=== PATIENT | female | born 1985 | race African-American/Black ===

== ENCOUNTER 2023-10-29 10:34 | Emergency (ER) | payer MEDICAID, OTHER ==
[~2023-10-29] VITALS: Ht 162.6 cm; Wt 55.0 kg
[~2023-10-29 10:34] MED LIST: INSULIN
[2023-10-29 10:44] VITALS: O2SAT 100
[2023-10-29 11:00] LABS: BASOPHILS % 0.3 % (0.0-2.0); EOSINOPHILS % 0.2 % (0.0-5.0); HEMOGLOBIN. 13.8 g/dL (12.0-16.0); LYMPHOCYTES % 18.2 % (20.0-50.0); MEAN CORPUSCULAR HEMOGLOBIN 30.2 pg (28.0-32.0); MEAN CORPUSCULAR HGB CONC 33.7 g/dL (31.0-37.0); MEAN CORPUSCULAR VOLUME 89.6 fL (81.0-99.0); MEAN PLATELET VOLUME 9.1 fl (7.4-10.4); MONOCYTES % 7.4 % (2.0-8.0); NEUTROPHILS % 73.9 % (40.0-76.0); PLATELET 258 x1000/uL (130-400); RED BLOOD CELL COUNT 4.58 mill/uL (4.2-5.4); RED CELL DISTRIBUTION WIDTH 13.4 % (11.6-14.6); WHITE BLOOD COUNT 6.3 x1000/uL (4.5-11.0)
[2023-10-29 11:05] LABS: CHLORIDE 100 mEq/L (98-107); POTASSIUM 3.3 mEq/L (3.5-5.1); SODIUM 134 mEq/L (136-145)
[2023-10-29 11:06] LABS: CARBON DIOXIDE 23 mEq/L (21-32)
[2023-10-29 11:07] LABS: CALCIUM 9.4 mg/dL (8.7-10.4)
[2023-10-29 11:11] LABS: CREATININE 1.1 mg/dL (0.6-1.0); GLUCOSE 308 mg/dL (70-105)
[2023-10-29 11:12] LABS: UREA NITROGEN BLOOD 10 mg/dL (9-23)
[2023-10-29] MEDS: ONDANSETRON 4MG ODT PO STA (11:31)
[2023-10-29 11:54] LABS: CLARITY URINE CLOUDY (CLEAR); COLOR URINE YELLOW (YELLOW); GLUCOSE URINE 3+ (NEGATIVE); KETONES URINE 4+ (NEGATIVE); LEUKOCYTE ESTERASE URINE NEGATIVE (NEGATIVE); NITRITE URINE NEGATIVE (NEGATIVE); OCCULT BLOOD URINE NEGATIVE (NEGATIVE); PH URINE 6.5 (4.5-8.0); PROTEIN URINE 2+ (NEGATIVE); SPECIFIC GRAVITY URINE 1.016 (1.005-1.030); UROBILINOGEN URINE 0.2 E.U./dL (0.2-1.0)
[2023-10-29] MEDS: SODIUM CHLORIDE 0.9% 1000ML BAG (SEPSIS BOLUS) IV ONE (12:02)
[2023-10-29 12:06] LABS: SQUAMOUS EPITHELIAL CELL URINE 3+ /lpf (RARE/1+)
[2023-10-29 12:09] LABS: BACTERIA URINE 4+; RBC URINE 0-2 /hpf (0-2); YEAST URINE NONE SEEN
[2023-10-29 13:00] LABS: HCG SCREEN NEGATIVE
[2023-10-29 14:11] LABS: TROPONIN I HIGH SENSITIVITY 84 ng/L (3.0-34)
[2023-10-29 15:56] LABS: TROPONIN I HIGH SENSITIVITY 111 ng/L (3.0-34)
[2023-10-29] MEDS: ASPIRIN 325MG EC TABLET PO SCH (18:26)
[2023-10-29] MEDS: ASPIRIN 325MG EC TABLET PO ONE (18:26)
[2023-10-29 21:00] VITALS: BP 127/75; PULSE 70; RESP 19; TEMP 96.8
[2023-10-30 08:38] LABS: *AMPHETAMINES SCREEN URINE NEGATIVE (NEGATIVE); *BENZODIAZEPINES SCREEN URINE NEGATIVE (NEGATIVE)
[2023-10-30 08:39] LABS: *BARBITURATES SCREEN URINE NEGATIVE (NEGATIVE); *COCAINE SCREEN URINE NEGATIVE (NEGATIVE); CANNABINOID URINE SCREEN PRESUMPTIVE POSITIVE (NEGATIVE); ECSTASY MDMA SCREEN URINE NEGATIVE (NEGATIVE); METHADONE URINE SCREEN NEGATIVE (NEGATIVE); OPIATES URINE SCREEN NEGATIVE (NEGATIVE); PHENCYCLIDINE URINE SCREEN NEGATIVE (NEGATIVE)
== END 2023-10-29 21:12 | disposition short-term general hospital (02) ==
LOC: ER 10:34 → EDBEDREQ 14:50 → EDBEDREQTM 17:14 → CANBEDREQ 17:17 → ER 21:12
DX: I21.3 ST elevation (STEMI) myocardial infarction of unspecified site (principal); E11.65 Type 2 diabetes mellitus with hyperglycemia; Z91.010 Allergy to peanuts
CPT/HCPCS: 80305; 80048; 81003; 81025; 82962; 84703; 83690; 85025; 84484; 36415; 93005; 96360; 99285; Q0162; J7030; Z7610 ×2